=== PATIENT | male | born 2005 | race Caucasian/White ===

== ENCOUNTER 2024-11-26 16:15 | Outpatient (CLI) | payer OTHER, SELFPAY ==
--- NOTE | ~2024-11-26 | XR_ITS ---
CHEST RADIOGRAPH, PA AND LATERAL CLINICAL HISTORY: Cough . COMPARISON: None available TECHNIQUE: PA and lateral views of the chest. FINDINGS The cardiomediastinal silhouette is unremarkable. The lungs are clear. Visualized osseous structures and soft tissues are unremarkable. IMPRESSION: No focal infiltrate or effusion. Reviewed, dictated and finalized at location A.
== END 2024-11-26 16:16 | disposition home or self-care (01) ==
LOC: MICIMG 16:25
PROVIDERS: PCP Pediatrics Adolescent Medicine; Visit Provider Student in an Organized Health Care Education/Training Program
DX: R05.9 Cough, unspecified (principal)
CPT/HCPCS: 71046

== ENCOUNTER 2025-06-14 05:51 | Day surgery (SDC) | payer OTHER, SELFPAY ==
[2025-06-12 08:01] VITALS: BMI 35.4
--- OUTSIDE RECORDS SUMMARY | 2025-06-14 06:52 | XMS_ITS | Clinical Summary ---
Author Organization [facility] osp[facility] Address [address] [place] [address] Care Team Providers Care Children'S Service Supervisor Name Role Phone Monica Rosario MD Primary Care Provider [phone] Allergies Active Allergy Reactions Criticality Noted Date Comments Amoxicillin Other (See comments) Low Reaction: Medications albuterol sulfate 90 mcg/actuation aerosol powdr breath activated Active cetirizine (ZyrTEC) 10 mg tablet Active FLUoxetine (PROzac) 40 mg capsule Take 1 capsule by mouth daily 07/16/2021 Active montelukast (SINGULAIR) 10 mg tablet Take 10 mg by mouth nightly Active omeprazole (PriLOSEC) 40 mg capsule Take 1 capsule (40 mg total) by mouth daily 30 capsule 3 08/05/2021 Active Active Problems Problem Noted Date Diagnosed Date Asthma 07/27/2021 High triglycerides 06/28/2018 Resolved Problems Problem Noted Date Diagnosed Date Resolved Date Short stature 03/01/2018 07/27/2021 Isolated growth hormone deficiency (CMS/HCC) 8 07/27/2021 Immunizations Immunization Administration Dates Next Due DTaP 04/17/2008,10/28/2004,2003 DTaP / Hep B / IPV 2003,2003 HPV9 04/16/2017,05/03/2016,04/22/2015 Hep A, Ped Unspecified 04/03/2007,05/25/2006 Hep B, Adolescent or Pediatric 12/13/2008,2003,2003 HiB 06/25/2004, 4,2003,08/29 IPV 04/17/2008,2003 Influenza, Quadrivalent, Spl it, Preservative Free, Intramuscular 06/14/2020,06/14/2018,06/11/2017,05/29,07/03/2015,06/27/2014 Influenza, Split 06/09/2010 Influenza, Trivalent, Preser vative Free, Intramuscular 06/18/2013,06/19/2012,07/14/2011 Influenza, Unspecified 08/16/2006 MMR 04/17/2008,06/25/2004 Meningococcal B, Recombinant (Trumenba) 06/20/2021 Meningococcal MCV4P (Menactra) 06/14/2020,2014 Pneumococcal Conjugate 7-Valent 10/28/19 05,06/25/2004,01/09/2004,08/29 Pneumococcal Conjugate PCV 13 2003 Tdap 04/22/2015 Varicella 12/13/2008,10/28/2004 Surgical History Surgery Date Site/Laterality Comments ADENOIDECTOMY W/ MYRINGOTOMY AND TUBES TONSILECTOMY, ADENOIDECTOMY, BILATERAL MYRINGOTOMY AND TUBES TYMPANOSTOMY TUBE PLACEMENT Bilateral Medical History Medical History Date Comments Growth hormone deficiency Asthma Short stature 03/01/2018 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 Family History Medical History Relation Name Comments No Known Problems Brother 1 No Known Problems Brother 2 Depression Father Hyperlipidemia Father Diabetes Maternal Grandfather Heart disease Maternal Grandfather Diabetes Maternal Grandmother Anemia Mother Anxiety disorder Mother Arthritis Mother Family history of arthritis - (Added by TW Conv) Depression Mother Diabetes Mother Family history of diabetes mellitus - (Added by TW Conv) Scoliosis Mother Family history of scoliosis - (Added by TW Conv) Diabetes Paternal Grandfather Diabetes Paternal Grandmother Heart disease Paternal Grandmother Relation Name Status Comments Brother 1 Alive Brother 2 Alive Father Alive Maternal Grandfather Maternal Grandmother Mother Alive Paternal Grandfather Paternal Grandmother Social History Tobacco Use Types Packs/Day Years Used Date Smoking Tobacco: Never Smokeless Tobacco: Never Sex and Gender Information Value Date Recorded Sex Assigned at Not on file Legal Sex Male 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 Gender Identity Not on file Sexual Orientation Not on file History Length Weight Head Circum Date/Time Gestation Age D/C Weight APGARs Delivery Method Feeding 20 (50.8 cm) 10 lb (4.536 kg) 2005 Obstetrics History Last Filed Vital Signs Vital Sign Reading Time Taken Comments Blood Pressure 102/70 07/27/2021 8:39 AM ABA THERAPIST Pulse 86 07/27/2021 8:39 AM ABA THERAPIST Temperature 36.7 C (98.1 F) 07/27/2021 8:39 AM ABA THERAPIST Respiratory Rate 20 07/27/2021 8:39 AM ABA THERAPIST Oxygen Saturation 97% 07/27/2021 8:39 AM ABA THERAPIST Inhaled Oxygen Concentration - - Weight 93.1 kg (205 lb 4 oz) 07/27/2021 8:39 AM ABA THERAPIST Height 171.9 cm (5' 7.68) 07/27/2021 8:39 AM CS T Body Mass Index 31.51 07/27/2021 8:39 AM ABA THERAPIST Plan of Treatment Not on file Insurance [employer] OPEN ACCESS Member Subscriber Plan / Payer (Ef fective 2020-Present) Name:Manoj Alvares Relation to Subscriber:Self Name:Manoj Alvares Payer ID:[id number] ([facility]) Group ID:[id number] Type:Treehouse HMO/PPO Address: [facility] [address] [place] [address] Member Subscriber Plan / Payer (Ef fective 2021-Present) Name:Manoj Alvares Relation to Subscriber:Other Relationship Name:DAXA ALVARES Subscriber ID:Not on file Date of :1979 (Home) Address: [address] [id number] Payer ID:[id number] ([employer]) Group ID:[id number] Type:CIGNA HMO/PPO Address: [facility] [id number] [place] [id number] IDPA Care Teams Children'S Service Supervisor Relationship Specialty Start Date End Date Monica Rosario MD [address] [place] [address] PCP - General Pediatrics 06/24/21
--- OUTSIDE RECORDS SUMMARY | 2025-06-14 06:52 | XMS_ITS | Encounter Summary ---
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
[2025-06-14 07:10] VITALS: BP 133/90; PULSE 78; RESP 17; TEMP 36.9; O2SAT 99
[2025-06-14] MEDS: SIMETHICONE ORAL SUSPENSION 20 MG/0.3 ML 30 ML BOTTLE 1.8 ML PO (07:13)
[2025-06-14] MEDS: LACTATED RINGERS 1,000 ML 150 ML IV CONT (07:14)
--- NOTE | 2025-06-14 07:24 | P.PNAN_ITS ---
Anes - Initial Pre Proc Eval Procedure: Operation Date: 06/14/25 08:30 Proposed Procedures p Esophagogastroduodenoscopy - George Rockwell MD Date/Time: 06/14/25 07:24 Surgeon: George Rockwell MD Pre Op Diagnosis: Foreign body sensation, throat, GERD Patient Data Age: 19 Gender: M Height: 1.73 m Weight: 104.7 kg Last Vital Signs Temp 98.4 F 06/14/25 07:10 Pulse 78 06/14/25 07:10 Resp 17 06/14/25 07:10 BP 133/90 06/14/25 07:10 Pulse Ox 99 06/14/25 07:10 O2 Del Method Room Air 06/14/25 07:10 Allergies Allergy/AdvReac Type Severity Reaction Status Date / Time Penicillins Allergy Hives Verified 06/14/25 07:09 Home Medications ?Medication ?Instructions ?Recorded ?Confirmed ?Type albuterol sulfate 2.5 mg/3 mL 2.5 mg (3 mL) inhalation TID PRN 03/04/25 06/14/25 Rx (0.083 %) solution for nebulization shortness of breat h or wheezing #180 mL albuterol sulfate 90 mcg/actuation 1 - 2 inh inhalatio n Q4-6H PRN 03/04/25 06/14/25 Rx aerosol inhaler (Ventolin HFA) shortness of breath or wheezing #8.5 grams fluticasone propionate 45 2 puff inhalation BID #12 gr ams 03/04/25 06/14/25 Rx mcg-salmeterol 21 mcg/actuation HFA inhaler (Advair HFA) montelukast 10 mg tablet 10 mg PO DAILY #90 tabs 02/1706/14/25 Rx (Singulair) omeprazole 40 mg capsule,delayed 40 mg PO DAILY #30 ca ps 06/10/25 06/14/25 Rx release sertraline 25 mg tablet 25 mg PO DAILY #30 tabs 05/2106/14/25 Rx cetirizine 10 mg tablet (24Hour 10 mg PO DAILY PRN all ergy symptoms 06/12/25 06/14/25 History Allergy) fluticasone propionate 50 1 spray intranasal BID PRN a llergy 06/12/25 06/14/25 History mcg/actuation nasal symptoms spray,suspension (Flonase Allergy Relief) Patient hx anesthesia problems: none Family hx anesthesia problems: none Results Review: All pre-operative results and documents have been reviewed as part of the pre- operative evaluation. [facility] Past Medical History Medical History (Updated 06/10/25 @ 15:32 by Susana Birmingham NP) Hyperlipidemia Elevated fasting glucose Anxiety Globus sensation GERD (gastroesophageal reflux disease) Bronchitis Chronic nasal congestion BMI 36.0-36.9,adult Frequent headaches Migraines Asthma Seasonal allergies Surgical History Surgical History History of tonsillectomy and adenoidectomy History of placement of ear tubes 3 sets of tubes Family History Family History Mother Diabetes mellitus Hypertension Depression Thyroid condition Father Diabetes mellitus Hypertension Sibling Diabetes mellitus Grandparent Diabetes mellitus Hypertension Asthma Depression Cerebrovascular accident Thyroid condition Grandparent Diabetes mellitus Hypertension Asthma Depression Grandparent Diabetes mellitus Hypertension Alcoholism Depression Heart disease Grandparent Diabetes mellitus Hypertension Alcoholism Bladder cancer Depression Social History Social History Smoking status: Never smoker Alcohol intake: current Alcohol use details: 1-4 drinks per week Substance use: never Anes - Eval Final PreProcedure Day of Procedure 06/14/25 07:24 Heart: regular rate and rhythm Lungs: clear to auscultation Airway: Mallampati scale class III Neurological: alert and oriented Last oral intake: >/= 8 hours ASA classification: II Anesthetic plan: proceed Anesthesia type and monitoring: monitored anesthesia care Results Review: All pre-operative results and documents have been reviewed as part of the pre-operative evaluation. Informed Consent: The patient's anesthetic plan and its attendant risks and benefits were discussed with the patient/family/POA. Questions were solicited and answers provided to the satisfaction of the patient/family/POA.
--- NOTE | 2025-06-14 08:35 | P.HP_ITS ---
H&P: HPI History of Present Illness Date/Time: 06/14/25 08:35 Chief Complaint: vomiting Narrative: this patient has been complaining of persistent postprandial vomiting 60 minutes after eating some months. Not Associated with abdominal pain, hematemesis, melena or weight loss. He is referred for EGD. Review of Systems Review of Systems: All systems reviewed & are unremarkable except as noted in HPI and below PMFSH Past Medical History Medical History (Updated 06/14/25 @ 08:37 by George Rockwell MD) Hyperlipidemia Elevated fasting glucose Anxiety Globus sensation GERD (gastroesophageal reflux disease) Bronchitis Chronic nasal congestion BMI 36.0-36.9,adult Frequent headaches Migraines Asthma Seasonal allergies Surgical History Surgical History History of tonsillectomy and adenoidectomy History of placement of ear tubes 3 sets of tubes Family History Family History Mother Diabetes mellitus Hypertension Depression Thyroid condition Father Diabetes mellitus Hypertension Sibling Diabetes mellitus Grandparent Diabetes mellitus Hypertension Asthma Depression Cerebrovascular accident Thyroid condition Grandparent Diabetes mellitus Hypertension Asthma Depression Grandparent Diabetes mellitus Hypertension Alcoholism Depression Heart disease Grandparent Diabetes mellitus Hypertension Alcoholism Bladder cancer Depression Social History Social History Smoking status: Never smoker Alcohol intake: current Alcohol use details: 1-4 drinks per week Substance use: never Meds Home Medications and Allergies Home Medications ?Medication ?Instructions ?Recorded ?Confirmed ?Type albuterol sulfate 2.5 mg/3 mL 2.5 mg (3 mL) inhalation TID PRN 03/04/25 06/14/25 Rx (0.083 %) solution for nebulization shortness of breat h or wheezing #180 mL albuterol sulfate 90 mcg/actuation 1 - 2 inh inhalatio n Q4-6H PRN 03/04/25 06/14/25 Rx aerosol inhaler (Ventolin HFA) shortness of breath or wheezing #8.5 grams fluticasone propionate 45 2 puff inhalation BID #12 gr ams 03/04/25 06/14/25 Rx mcg-salmeterol 21 mcg/actuation HFA inhaler (Advair HFA) montelukast 10 mg tablet 10 mg PO DAILY #90 tabs 02/1706/14/25 Rx (Singulair) omeprazole 40 mg capsule,delayed 40 mg PO DAILY #30 ca ps 06/10/25 06/14/25 Rx release sertraline 25 mg tablet 25 mg PO DAILY #30 tabs 05/2106/14/25 Rx cetirizine 10 mg tablet (24Hour 10 mg PO DAILY PRN all ergy symptoms 06/12/25 06/14/25 History Allergy) fluticasone propionate 50 1 spray intranasal BID PRN a llergy 06/12/25 06/14/25 History mcg/actuation nasal symptoms spray,suspension (Flonase Allergy Relief) Allergies Allergy/AdvReac Type Severity Reaction Status Date / Time Penicillins Allergy Hives Verified 06/14/25 07:09 Vital Signs Vital Signs - 24 hr 06/14/25 07:10 Temperature 98.4 F Pulse Rate 78 Respiratory Rate 17 Blood Pressure 133/90 Pulse Oximetry 99 Oxygen Delivery Room Air Exam Const: General: cooperative and healthy appearing Resp: Effort & Inspection: normal respiratory effort and able to speak in complete sentences Auscultation: clear to auscultation bilaterally Cardio: Rate: regular rate Rhythm: regular rhythm GI: Inspection: normal to inspection GI Palp: No No hepatosplenomegaly present Auscultation: normal bowel sounds Rectal Exam: deferred Skin: General skin exam: normal color Psych: Appearance: grossly normal Mental Status: mental status grossly normal Assessment and Plan Assessment and plan (1) Vomiting: Code(s): R11.10 - Vomiting, unspecified Status: Acute Assessment and Plan: The patient is deemed a good candidate for the procedure. Consent signed. Will proceed.
--- NOTE | 2025-06-14 08:38 | WPDANESPN ---
Anes - Prog Note Post-Op Date/Time: 06/14/25 08:38 Vital Signs: Last Vital Signs Temp 98.4 F 06/14/25 07:10 Pulse 78 06/14/25 07:10 Resp 17 06/14/25 07:10 BP 133/90 06/14/25 07:10 Pulse Ox 99 06/14/25 07:10 O2 Del Method Room Air 06/14/25 07:10 Pain Score (VAS): no Patient Feedback: Patient satisfied with anesthetic care.
--- NOTE | 2025-06-14 08:54 | WPDANESPN ---
Anes - Prog Note Post-Op Date/Time: 06/14/25 08:54 Vital Signs: Last Vital Signs Temp 98.4 F 06/14/25 07:10 Pulse 78 06/14/25 07:10 Resp 17 06/14/25 07:10 BP 133/90 06/14/25 07:10 Pulse Ox 99 06/14/25 07:10 O2 Del Method Room Air 06/14/25 07:10 Pain Score (VAS): no Patient Feedback: Patient satisfied with anesthetic care.
[2025-06-14 08:58] VITALS: BP 110/66; PULSE 89; RESP 18; O2SAT 94
[2025-06-14 09:08] VITALS: BP 110/76; PULSE 83; RESP 16; O2SAT 96
[2025-06-14 09:18] VITALS: BP 111/72; PULSE 71; RESP 18; O2SAT 95
== END 2025-06-14 09:22 | disposition home or self-care (01) ==
PROVIDERS: PCP Nurse Practitioner Family; Referring Provider Nurse Practitioner Family; Visit Provider Internal Medicine Gastroenterology
PROC: 0DJ08ZZ Inspection of Upper Intestinal Tract, Via Natural or Artificial Opening Endoscopic (ICD-10-PCS; CPT 43239; principal; 2025-06-14 08:30)
DX: R11.10 Vomiting, unspecified (principal)
CPT/HCPCS: 43239

== ENCOUNTER 2025-06-14 10:28 | Outpatient (NON) | payer OTHER, SELFPAY ==
--- NOTE | 2025-06-14 | S_PTH ---
PATIENT: Manoj Alvares LOC: [facility] U#:[id number] AGE/SX: 19/M ROOM: RE06/14/[address]: George Rockwell MD : 2005 BED: DIS: 06/14/2025 SPEC #: [id number] RECD: 06/17/25 11:07 STATUS: NOMAN REGeronimo #: [id number] CHRISTIN: 06/14/25 00:[address]: George Rockwell DEPT: [facility] Surgical RECD BY: Richelle Grider ENTERED: 06/17/25 11:08 SP TYPE: Surgical OTHR DR: Susana Birmingham APRN Tissues: A - Gastric Biopsy B - Gastric Biopsy Procedures: Hematoxylin and Eosin Stain Gross and Microscopic Level 4
--- OUTSIDE RECORDS SUMMARY | 2025-06-17 11:06 | XMS_ITS | Encounter Summary ---
Author Organization 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
--- OUTSIDE RECORDS SUMMARY | 2025-06-17 11:06 | XMS_ITS | Clinical Summary ---
Author Organization [facility] o[facility] Address [address] [place] [address] Care Team Providers Care Assistant Manager Bilingual Name Role Phone Monica Rosario MD Primary Care Provider +1 -[phone] Allergies Active Allergy Reactions Criticality Noted Date [...] on file Legal Sex Male 8:42 AM WRECKER OPERATOR Gender Identity Not on file Sexual Orientation Not on file History Length Weight Head Circum Date/Time Gestation Age D/C Weight APGARs Delivery Method Feeding 20 (50.8 cm) 10 lb (4.536 kg) 2005 Obstetrics History Last Filed Vital Signs Vital Sign Reading Time Taken Comments Blood Pressure 102/70 07/27/2021 8:39 AM WRECKER OPERATOR Pulse 86 07/27/2021 8:39 AM WRECKER OPERATOR Temperature 36.7 C (98.1 F) 07/27/2021 8:39 AM WRECKER OPERATOR Respiratory Rate 20 07/27/2021 8:39 AM WRECKER OPERATOR Oxygen Saturation 97% 07/27/2021 8:39 AM WRECKER OPERATOR Inhaled Oxygen Concentration - - Weight 93.1 kg (205 lb 4 oz) 07/27/2021 8:39 AM WRECKER OPERATOR Height 171.9 cm (5' 7.68) 07/27/2021 8:39 AM CS T Body Mass Index 31.51 07/27/2021 8:39 AM WRECKER OPERATOR Plan of Treatment Not on file Insurance [employer] OPEN ACCESS Member Subscriber Plan / Payer (Ef fective 2020-Present) Name:Manoj Alvares Relation to Subscriber:Self Name:Manoj Alvares Payer ID:[id number] ([facility]) Group ID:[id number] Type:[employer] HMO/PPO Address: [facility] [address] [place] [address] Member Subscriber Plan / Payer (Ef fective 2021-Present) Name:Manoj Alvares Relation to Subscriber:Other Relationship Name:DAXA ALVARES Subscriber ID:Not on file Date of :1979 (Home) Address: [address] [id number] Payer ID:[id number] ([employer]) Group ID:[id number] Type:CIGNA HMO/PPO Address: [facility] [id number] [place] [id number] IDPA Care Teams Assistant Manager Bilingual Relationship Specialty Start Date End Date Monica Rosario MD [address] [place] [address] PCP - General Pediatrics 06/24/21
== END 2025-06-14 10:29 | disposition home or self-care (01) ==
LOC: ANHLAB 06-17 10:29
PROVIDERS: PCP Nurse Practitioner Family; Visit Provider Internal Medicine Gastroenterology
DX: R11.10 Vomiting, unspecified (principal)
CPT/HCPCS: 88305